=== PATIENT | male | born 1955 | race American Indian/Alaskan Native ===

== ENCOUNTER 2017-02-04 09:16 | Inpatient (IN) | payer BC ==
[~2017-02-04] VITALS: Ht 175.3 cm; Wt 72.1 kg
[~2017-02-04 09:16] MED LIST: ATOR40TA PO; BACITRACIN 50,000 UNIT ONE; BUPIVACAINE/PF 0.5% ONE; CARI350T14 PO; EPINEPHRINE 1 MG/ML, 1ML ONE; GABA600T2 PO; OXYC15TA PO; OXYC60TA8 PO; QUET300T PO; THROMBIN 20,000 UNIT VIAL TP ONE
[2017-02-04] MEDS ORDERED: LACTATED RINGERS 1,000 ML IV SCH (09:41)
[2017-02-04 09:48] VITALS: BP 128/85
[2017-02-04] MEDS ORDERED: FENTANYL PF 500 MCG/10ML ONE (11:00)
[2017-02-04] MEDS ORDERED: MIDAZOLAM 1 MG/ML, 2ML ONE ×2 (11:00→14:47)
[2017-02-04] MEDS ORDERED: HYDROmorphone 2 MG/ML, 1ML ONE ×2 (11:00→14:22)
[2017-02-04] MEDS ORDERED: GABAPENTIN 300 MG CAPSULE ONE (11:16)
[2017-02-04] MEDS ORDERED: ACETAMINOPHEN 500 MG TABLET ONE (11:16)
[2017-02-04] MEDS ORDERED: GLYCOPYRROLATE 0.2MG/1ML ONE (11:37)
[2017-02-04] MEDS ORDERED: PROPOFOL 10 MG/ML, 50ML ONE (11:37)
[2017-02-04] MEDS ORDERED: PROPOFOL 10 MG/ML, 20ML ONE (11:37)
[2017-02-04] MEDS ORDERED: NEOSTIGMINE 1 MG/ML, 10ML ONE (11:37)
[2017-02-04] MEDS ORDERED: SUCCINYLCHOLINE 20 MG/ML, 10ML ONE (11:37)
[2017-02-04] MEDS ORDERED: ROCURONIUM 10 MG/ML ONE (11:37)
[2017-02-04] MEDS ORDERED: CEFAZOLIN 1,000 MG ONE (11:37)
[2017-02-04] MEDS ORDERED: ONDANSETRON 2MG/ML, 2ML ONE (11:37)
[2017-02-04] MEDS ORDERED: DEXAMETHASONE 4 MG/ML, 1ML ONE (11:37)
[2017-02-04] MEDS ORDERED: KETAMINE 10 MG/ML, 20ML ONE (11:37)
[2017-02-04] MEDS ORDERED: hydrALAzine 20 MG/ML, 1ML IV PRN (13:00)
[2017-02-04] MEDS ORDERED: MEPERIDINE/PF 25MG/0.5ML IVPush PRN (13:00)
[2017-02-04] MEDS ORDERED: EPHEDRINE 50 MG/ML, 1ML IVPush PRN (13:00)
[2017-02-04] MEDS ORDERED: METOPROLOL 1 MG/ML, 5ML IV PRN (13:00)
[2017-02-04] MEDS ORDERED: LABETALOL 5MG/ML, 20ML IV PRN (13:00)
[2017-02-04] MEDS ORDERED: PROMETHAZINE 25 MG/ML, 1ML IV PRN (13:00)
[2017-02-04] MEDS ORDERED: OXYcodone 5 MG/5 ML ORAL.SOL UDC PO PRN (13:00)
[2017-02-04] MEDS ORDERED: ONDANSETRON 2MG/ML, 2ML IVPush PRN (13:00)
[2017-02-04] MEDS ORDERED: ALBUTEROL SULFATE 2.5 MG/3 ML NPPB PRN (13:00)
[2017-02-04] MEDS ORDERED: OXYcodone 5 MG/5 ML ORAL.SOL UDC ONE (14:22)
[2017-02-04] MEDS ORDERED: FENTANYL PF 100 MCG/2ML ONE ×2 (14:22→14:39)
[2017-02-04] MEDS: FENTANYL PF 100 MCG/2ML IV PRN ×4 (14:23→15:01)
[2017-02-04] MEDS: HYDROmorphone 1 MG/ML, 1ML IV PRN ×7 (14:25→15:33)
[2017-02-04] MEDS ORDERED: MEPERIDINE/PF 25MG/0.5ML ONE (14:31)
[2017-02-04] MEDS ORDERED: CYCLOBENZAPRINE 10 MG TABLET ONE (14:39)
[2017-02-04] MEDS: MIDAZOLAM 1 MG/ML, 2ML IV PRN ×2 (14:50→15:07)
[2017-02-04] MEDS ORDERED: CYCLOBENZAPRINE 10 MG TABLET PO PRN (15:00)
[2017-02-04] MEDS ORDERED: HYDROmorphone 1 MG/ML, 1ML ONE (15:17)
[2017-02-04] MEDS ORDERED: ONDANSETRON 2MG/ML, 2ML IV PRN (16:30)
[2017-02-04] MEDS ORDERED: DIPHENHYDRAMINE 50 MG/ML, 1ML IVPush PRN (16:30)
[2017-02-04] MEDS ORDERED: OXYcodone IR 5MG TABLET PO PRN (16:30)
[2017-02-04] MEDS ORDERED: MAGNESIUM HYDROXIDE 8%, 30ML UDC PO PRN (16:30)
[2017-02-04] MEDS: GABAPENTIN 300 MG CAPSULE PO SCH ×2 (16:30→21:33)
[2017-02-04] MEDS ORDERED: DIPHENHYDRAMINE 50 MG CAPSULE PO PRN (16:30)
[2017-02-04] MEDS: NS + 20MEQ KCL 1,000 ML IV SCH (16:30)
[2017-02-04] MEDS ORDERED: HYDROcodone/APAP 10/325 MG TABLET PO PRN (16:30)
[2017-02-04] MEDS ORDERED: BISACODYL 10 MG SUPP PR PRN (16:30)
[2017-02-04] MEDS ORDERED: DIPHENHYDRAMINE 50 MG/ML, 1ML IM PRN (16:30)
[2017-02-04] MEDS ORDERED: morphine SULFATE 10 MG/ML, 1ML IV PRN (16:30)
[2017-02-04] MEDS ORDERED: PROMETHAZINE 25 MG/ML, 1ML IM PRN (16:30)
[2017-02-04] MEDS ORDERED: NICOTINE 14MG/24 HR PATCH.TD24 TD SCH (20:00)
[2017-02-04] MEDS: CEFAZOLIN PMX 2GM/50ML 50 ML IVPB SCH (20:10)
[2017-02-04] MEDS: OXYcodone/APAP 5/325MG TABLET PO PRN (20:10)
[2017-02-04] MEDS ORDERED: ZOLPIDEM 5MG TABLET PO PRN (21:00)
[2017-02-04] MEDS ORDERED: ATORVASTATIN 40 MG TABLET PO SCH (21:00)
[2017-02-04] MEDS ORDERED: QUETIAPINE 100MG TABLET PO SCH (21:00)
[2017-02-04 21:06] VITALS: BP 121/75
[2017-02-04] MEDS: OxyconTIN ER 20 MG TAB.ER PO SCH (21:33)
[2017-02-04] MEDS: CYCLOBENZAPRINE 10 MG TABLET PO PRN (21:35)
[2017-02-05] MEDS: OXYcodone/APAP 5/325MG TABLET PO PRN (00:17)
[2017-02-05 00:20] VITALS: BP 113/65
[2017-02-05] MEDS: CEFAZOLIN PMX 2GM/50ML 50 ML IVPB SCH (04:01)
[2017-02-05 04:31] VITALS: BP 109/67
[2017-02-05] MEDS: NS + 20MEQ KCL 1,000 ML IV SCH (04:33)
[2017-02-05] MEDS: CYCLOBENZAPRINE 10 MG TABLET PO PRN (06:03)
[2017-02-05] MEDS: GABAPENTIN 300 MG CAPSULE PO SCH (06:03)
[2017-02-05 06:53] VITALS: BP 101/57
[2017-02-05] MEDS ORDERED: OXYcodone IR 5MG TABLET PO PRN (08:00)
[2017-02-05] MEDS ORDERED: CARISOPRODOL 350 MG TABLET PO PRN (08:00)
[2017-02-05] MEDS: OxyconTIN ER 20 MG TAB.ER PO SCH (08:32)
[2017-02-05] MEDS ORDERED: SENNA/DOCUSATE TABLET PO SCH (09:00)
[2017-02-05] MEDS ORDERED: CHOLECALCIFEROL 1,000 UNIT TABLET PO SCH (09:00)
[2017-02-05 10:20] VITALS: BP 143/85
[2017-02-05] MEDS ORDERED: OXYC20TA2 PO (10:56)
[2017-02-05] MEDS ORDERED: DOCU-131 PO (10:56)
[2017-02-05] MEDS ORDERED: CARI350T PO (10:57)
== END 2017-02-05 11:10 | disposition home or self-care (01) | DRG 460 ==
LOC: ORIP 09:16 → 4NOR 15:57 → DCLOUNGE 02-05 10:48
PROVIDERS: ADMIT Neurological Surgery; ATTEND Neurological Surgery
PROC: 0SB20ZZ Excision of Lumbar Vertebral Disc, Open Approach (ICD-10-PCS; 2017-02-04)
PROC: 0SG00A1 (ICD-10-PCS; principal; 2017-02-04 11:30)
DX: M51.26 Other intervertebral disc displacement, lumbar region (principal); M41.9 Scoliosis, unspecified; G89.4 Chronic pain syndrome
CPT/HCPCS: 36415; 72100; 86850; 86900; C1713; J0171; J0690; J1100; J1170; J2175; J2250; J2270; J2405; J2704; J2710; J3010; J3480; J3490; C1762; J0330; J7120